=== PATIENT | female | born 1975 | race African-American/Black ===

== ENCOUNTER 2018-09-11 14:26 | Emergency (ER) | payer OTHER ==
[~2018-09-11] VITALS: Ht 157.5 cm; Wt 77.1 kg
[~2018-09-11 14:26] MED LIST: ULTRAM50 MG PO
[2018-09-11] MEDS ORDERED: ABILIFY10 MG PO (14:45)
[2018-09-11] MEDS ORDERED: EFFEXOR XR75 MG PO (14:45)
[2018-09-11] MEDS ORDERED: IRON1TAB4 PO (18:32)
[2018-09-11] MEDS ORDERED: PROVERA2.5 MG PO (18:47)
== END 2018-09-11 18:49 | disposition home or self-care (01) ==
LOC: ER 14:26
DX: N93.8 Other specified abnormal uterine and vaginal bleeding (principal)

== ENCOUNTER 2021-11-28 19:52 | Emergency (ER) | payer OTHER ==
[~2021-11-28] VITALS: Ht 157.5 cm; Wt 72.6 kg
[~2021-11-28 19:52] MED LIST changes: +ABILIFY10 MG PO; +EFFEXOR XR75 MG PO; +IRON1TAB4 PO; +PROVERA2.5 MG PO
[2021-11-28] MEDS ORDERED: CLONAZEPAM0.5 MG PO (20:05)
[2021-11-28] MEDS ORDERED: WELLBUTRIN XL300 MG PO (20:05)
[2021-11-28] MEDS ORDERED: CLEOCIN HCL300 MG PO (20:06)
[2021-11-28] MEDS ORDERED: DEPAKOTE ER250 MG PO (20:06)
[2021-11-28] MEDS ORDERED: METOPROLOL SUCC25 MG PO (20:06)
[2021-11-28] MEDS ORDERED: MOTRIN IB200 M1 PO (20:07)
== END 2021-11-29 00:12 | disposition home or self-care (01) ==
LOC: ER 19:52
DX: K04.7 Periapical abscess without sinus (principal); I10 Essential (primary) hypertension

== ENCOUNTER 2023-07-30 14:17 | Emergency (ER) | payer OTHER ==
[~2023-07-30] VITALS: Ht 157.5 cm; Wt 72.6 kg
[~2023-07-30 14:17] MED LIST changes: +CLEOCIN HCL300 MG PO; +CLONAZEPAM0.5 MG PO; +DEPAKOTE ER250 MG PO; +METOPROLOL SUCC25 MG PO; +MOTRIN IB200 M1 PO; +WELLBUTRIN XL300 MG PO
[2023-07-30] MEDS ORDERED: CLONAZEPAM0.5 MG (15:24)
[2023-07-30] MEDS ORDERED: ABILIFY2 MG (15:24)
[2023-07-30] MEDS ORDERED: KETOROLAC TROMETHAMINE 30 MG VIAL IM STA (17:15)
[2023-07-30 17:41] LABS: HEMATOCRIT 43.2 % (36.0-45.00); MEAN CELL VOLUME 73.2 fL (80.00-100.00); MEAN CORPUSCULAR HEMOGLOBIN 23.7 pg (27.00-32.0); MEAN CORPUSCULAR HGB CONC 32.4 g/dl (32.0-36.0); PLATELET COUNT 339 K/uL (150-450); RED BLOOD COUNT 5.91 M/uL (4.00-6.00); RED CELL DISTRIBUTION WIDTH 15.9 % (11.5-14.5)
[2023-07-30 18:07] LABS: CALCIUM 9.5 mg/dL (8.5-10.1); CREATININE SERUM 0.82 mg/dL (0.55-1.02); GFR 74.72; POTASSIUM 3.57 mEq/L (3.5-5.1)
[2023-07-30] MEDS ORDERED: IBUPROFEN800 MG PO (19:40)
== END 2023-07-30 20:10 | disposition home or self-care (01) ==
LOC: ER 14:17
PROVIDERS: General Practice
DX: J06.9 Acute upper respiratory infection, unspecified (principal); R53.81 Other malaise; Z20.822 Contact with and (suspected) exposure to COVID-19
CPT/HCPCS: 36415; 96372; 99282; J1885